=== PATIENT | female | born 1950 | race Caucasian/White ===

== ENCOUNTER 2017-11-03 10:17 | Emergency (ER) | payer MEDICARE, BC ==
[2017-11-03 10:27] VITALS: BP 153/83
[2017-11-03] MEDS ORDERED: MECLIZINE HCL 25 MG TABLET PO ONE (10:33)
[2017-11-03] MEDS ORDERED: ONDANSETRON 4 MG TAB.RAPDIS PO ONE (10:33)
--- NOTE | 2017-11-03 10:34 | ER Document Report ---
ED Dizziness/Weakness - General Chief Complaint: Dizziness Stated Complaint: DIZZINESS AND VOMITING Time Seen by Provider: 11/03/17 10:29 Mode of Arrival: Ambulatory Information source: Patient, [facility] Records Notes: This 67-year-old female patient comes emergency room complaining of severe dizziness and head spinning that started when she woke up this morning. She notices she turned her head to one way or the other the room was spinning, also she tried to stand and walk it was spinning. It is causing nausea and vomiting up some clear liquid at this time. There is no headache. She has never had vertigo before. She is presently on no medications. TRAVEL OUTSIDE OF THE [place] IN LAST 30 DAYS: No - Related Data Allergies/Adverse Reactions: No Known Allergies Allergy (Verified 11/03/17 10:20) Past Medical History - General Information source: Patient, Outside Facility Records - Social History Smoking Status: Never Smoker Cigarette use (# per day): No Chew tobacco use (# tins/day): No Smoking Education Provided: No Frequency of alcohol use: None Drug Abuse: None Occupation: Retired Lives with: Family Family History: Reviewed & Not Pertinent - Medical History Medical History: Other - The patient does not have any cardiovascular, pulmonary , renal problems and takes no regular medications. Musculoskeltal Medical History: Reports Hx Arthritis, Reports Other - Spinal stenosis, lumbar arthritis, takes Motrin on a as needed basis Psychiatric Medical History: Reports: None Past Surgical History: Reports: Hx Appendectomy, Hx Cholecystectomy, Hx Hysterectomy, Hx Tonsillectomy, Other - TM repaired or replaced many years ago Review of Systems - Review of Systems Constitutional: No symptoms reported EENT: See HPI Cardiovascular: No symptoms reported Respiratory: No symptoms reported Gastrointestinal: See HPI Genitourinary: No symptoms reported Female Genitourinary: Post menopausal Musculoskeletal: No symptoms reported Skin: No symptoms reported Hematologic/Lymphatic: No symptoms reported Neurological/Psychological: See HPI Physical Exam - Vital signs Vitals: Pulse Resp BP Pulse Ox 74 18 153/83 H 100 11/03/17 10:25 11/03/17 10:25 11/03/17 10:25 11/03/17 10:25 Interpretation: Hypertensive - General General appearance: Appears well, Alert In distress: Mild - HEENT Head: Normocephalic, Atraumatic Eyes: Other - Right lateral gaze nystagmus Extraocular movements intact: No - EOMI, right lateral gaze nystagmus Pupils: PERRL Ears: Normal Tympanic membrane: Normal Nasal: Normal Mucous membranes: Normal Neck: Normal. No: Carotid bruit - Respiratory Respiratory status: No respiratory distress Breath sounds: Normal - Cardiovascular Rhythm: Regular Murmur: No Friction rub: No - Abdominal Inspection: Normal Tenderness: Nontender - Back Back: Normal - Extremities General upper extremity: Normal inspection General lower extremity: Normal inspection - Neurological Neuro grossly intact: Yes Notes: Neurologically intact. Right lateral gaze nystagmus made worse by movement of the head. - Psychological Associated symptoms: Normal affect, Normal mood - Skin Skin Temperature: Warm Skin Moisture: Dry Skin Color: Normal Course - Re-evaluation Re-evalutation: 11/03/17 11:23 The patient was given 8 mg of Zofran sublingual for the nausea, followed by 50 mg of Antivert to see how her symptoms respond. 11/03/17 11:50 Patient reports her symptoms are much better now, almost completely gone. I had her do lateral gaze testing and there is no nystagmus. I had her look up and down and back and forth quite rapidly and that did not bring all nystagmus or dizziness. She stood up and walk with her 4 footed cane, she did seem a little unstable, but she states that is her baseline walking. She also has a walker at home. She does suffer from spinal stenosis. - Vital Signs Vital signs: Temp Pulse Resp BP Pulse Ox 74 18 153/83 H 100 11/03/17 10:25 11/03/17 10:25 11/03/17 10:25 11/03/17 10:25 Discharge - Discharge Clinical Impression: Vertigo Condition: Stable Disposition: HOME, SELF-CARE Additional Instructions: Vertigo: You have experienced an episode of vertigo -- a whirling dizziness which may be accompanied by nausea and vomiting or staggering. Vertigo is often caused by an irritation of the inner ear, in which case it is called labyrinthitis. It can also be a symptom of a degenerating inner ear, nerve damage, or brain injury. Your physician has evaluated you to determine whether any further testing is necessary. Vertigo is often treated with dramamine or meclizine. These medications are helpful, but stronger medication may be needed if you are vomiting. Rest in bed. You should not drive or operate machinery until completely better. It may take one to three weeks for recovery. If there are new symptoms, such as decreased hearing or vision, severe headache, weakness or faintness, or confusion, call the physician. //////////////////////////////////////////////////////////////////////////////// //////////////////////////////////////////////////////////////////////////////// / Take medication as prescribed for the dizziness and room spinning sensations. Take fall precautions until your symptoms have completely cleared up. Follow-up with your primary care provider if not improving over the next several days. RETURN TO THE EMERGENCY ROOM IF ANY NEW OR WORSENING SYMPTOMS. Prescriptions: Meclizine HCl [Antivert 25 mg Tablet] 25 mg PO TID PRN #25 tablet PRN Reason:
== END 2017-11-03 11:59 | disposition home or self-care (01) ==
LOC: ER 10:17
DX: R42 Dizziness and giddiness (principal); R11.10 Vomiting, unspecified
CPT/HCPCS: 99284; A9270 ×2; S0119

== ENCOUNTER → 2018-04-05 | Outpatient (CLI) | payer MEDICARE, BC ==
--- NOTE | 2018-04-05 10:34 | RADIOLOGY REPORT (SQ) ---
EXAM DESCRIPTION: L SPINE FLEX/EXT ONLY COMPLETED DATE/TIME: 04/05/2018 10:20 am REASON FOR STUDY: SPINAL STENOSIS M48.062 SPINAL STENOSIS, LUMBAR REGION WITH NEUROGENIC SHELLIE COMPARISON: 11/22/2015 NUMBER OF VIEWS: Three view. TECHNIQUE: Lateral views of the lumbar spine with flexion and extension. LIMITATIONS: None. FINDINGS: MINERALIZATION: Normal. SEGMENTATION: Normal. No transitional anatomy. ALIGNMENT: Approximately 17 mm anterolisthesis L5 on S1 unchanged from prior study. FLEXION/EXTENSION: No instability. VERTEBRAE: Maintained height. No fracture or worrisome bone lesion. DISCS: Stable degree of multilevel degenerative disc disease most severe at L5-S1. POSTERIOR ELEMENTS: Pedicles and facets are intact. Advanced facet arthropathy L5-S1. No definite p ars defect. HARDWARE: None in the spine. OTHER: No other significant finding. IMPRESSION: STABLE DEGENERATIVE CHANGE OF THE LUMBAR SPINE MOST SEVERE AT L5-S1 WITH THERE IS GRADE 1 ANTEROLISTHESIS. NO DEFINITE RADIOGRAPHIC EVIDENCE OF INSTABILITY. TECHNICAL DOCUMENTATION: JOB ID: [id number] [employer]- All Rights Reserved Reading location - IP/workstation name: [email or web address]
--- NOTE | 2018-04-05 16:01 | RADIOLOGY REPORT (SQ) ---
EXAM DESCRIPTION: MRI LUMBAR SPINE WITHOUT COMPLETED DATE/TIME: 04/05/2018 10:43 am REASON FOR STUDY: SPINAL STENOSIS M48.062 SPINAL STENOSIS, LUMBAR REGION WITH NEUROGENIC SHELLIE COMPARISON: 5th 01/24/2016 TECHNIQUE: Sagittal and Axial imaging includes T1, T2, STIR and gradient echo sequences. Coronal T2/ HASTE imaging. LIMITATIONS: None. FINDINGS: VISUALIZED UPPER ABDOMEN: Limited evaluation. No acute or suspicious findings suggested. SEGMENTATION: No transitional anatomy. The lowest well-developed disc space is labeled L5-S1. ALIGNMENT: Mild convex left scoliosis. Slight anterolisthesis of L3 relative to L4, L5 relative to S 1. VERTEBRAE: Intact. BONE MARROW: Normal. No marrow replacement or reactive changes. DISC SIGNAL: Desiccation multiple levels. POSTERIOR ELEMENTS: Intact. HARDWARE: None in the spine. CORD AND CONUS: Normal in size and signal intensity. Conus at the appropriate level. SOFT TISSUES: No aortic aneurysm seen. No bulky retroperitoneal adenopathy or mass. No paraspinal mas s or fluid. L1-L2: Mild spinal stenosis due to disc osteophyte complex. Mild -moderate neural foraminal narrowin g bilaterally. L2-L3: Mild spinal stenosis. Lateral recess stenosis. Facet arthropathy. Mild-moderate neural fora wendi narrowing bilaterally. L3-L4: Moderate spinal stenosis. Lateral recess stenosis. Facet arthropathy. Moderate neural aaliyah inal narrowing bilaterally. L4-L5: Mild spinal stenosis. Facet arthropathy. Moderate right neural foraminal narrowing. L5-S1: Facet arthropathy. Mild left and mild-moderate right neural foraminal narrowing. LOWER THORACIC: Incompletely imaged. No stenosis seen. SACRUM: Visualized upper sacrum intact. OTHER: No other significant findings. IMPRESSION: Spondylosis, facet arthropathy and malalignment. Spinal stenosis at multiple levels, mo re advanced at L3- 4. Slight progression since the prior. TECHNICAL DOCUMENTATION: JOB ID: [id number] [employer]- All Rights Reserved Reading location - IP/workstation name: [email or web address]
== END ==
LOC: RAD 09:10
PROVIDERS: ATTEND Neurological Surgery
DX: M48.062 Spinal stenosis, lumbar region with neurogenic claudication (principal)
CPT/HCPCS: 72120; 72148

== ENCOUNTER → 2019-01-20 | Outpatient (CLI) | payer MEDICARE, BC ==
--- NOTE | 2019-01-20 10:54 | RADIOLOGY REPORT (SQ) ---
EXAM DESCRIPTION: L SPINE FLEX/EXT ONLY COMPLETED DATE/TIME: 01/20/2019 10:09 am REASON FOR STUDY: PAIN IN RIGHT HIP, SPINAL INSTABILITIES M25.551 PAIN IN RIGHT HIP M53.2X7 SPINAL INSTABILITIES, LUMBOSACRAL REGION M48.062 SPINAL STENOSIS, LUMBAR REGION WITH NEUROGENIC SHELLIE COMPARISON: NUMBER OF VIEWS: Two view. TECHNIQUE: Lateral flexion or extension LIMITATIONS: None. FINDINGS: MINERALIZATION: Decreased SEGMENTATION: Normal. No transitional anatomy. ALIGNMENT: Stable grade 1-2 anterolisthesis of L5 on S1. FLEXION/EXTENSION: No evidence of instability with flexion or extension. VERTEBRAE: Maintained height. No fracture or worrisome bone lesion. DISCS: Multilevel degenerative disc disease throughout the lumbar spine greatest at L1-2 and L5-S1. POSTERIOR ELEMENTS: Lower lumbar facet arthropathy. HARDWARE: Surgical clips overlie upper abdomen. OTHER: No other significant finding. IMPRESSION: Stable grade 1-2 anterolisthesis of L5 on S1. No evidence of instability with flexion o r extension. Multilevel degenerative changes throughout the lumbar spine with lower lumbar facet arthropathy. TECHNICAL DOCUMENTATION: JOB ID: [id number] [employer]- All Rights Reserved Reading location - IP/workstation name: [email or web address]
--- NOTE | 2019-01-20 15:58 | RADIOLOGY REPORT (SQ) ---
EXAM DESCRIPTION: MRI LUMBAR SPINE WITHOUT COMPLETED DATE/TIME: 01/20/2019 9:47 am REASON FOR STUDY: PAIN IN RIGHT HIP, SPINAL INSTABILITIES M25.551 PAIN IN RIGHT HIP M53.2X7 SPINAL INSTABILITIES, LUMBOSACRAL REGION M48.062 SPINAL STENOSIS, LUMBAR REGION WITH NEUROGENIC SHELLIE COMPARISON: 04/05/2018. TECHNIQUE: Sagittal and Axial imaging includes T1, T2, STIR and gradient echo sequences. Coronal T2/ HASTE imaging. LIMITATIONS: None. FINDINGS: VISUALIZED UPPER ABDOMEN: Limited evaluation. No acute or suspicious findings suggested. SEGMENTATION: No transitional anatomy. The lowest well-developed disc space is labeled L5-S1. ALIGNMENT: Grade 1 anterolisthesis of L5 on S1. Mild levoconvex curvature of the lumbar spine. . VERTEBRAE: Intact. BONE MARROW: Normal. No marrow replacement or reactive changes. DISC SIGNAL: Multilevel degenerative disc disease with disc desiccation and multilevel disc bulges. POSTERIOR ELEMENTS: Generally intact. No pars defect evident. HARDWARE: None in the spine. CORD AND CONUS: Normal in size and signal intensity. Conus medullaris terminates at L1-2. SOFT TISSUES: No aortic aneurysm seen. No bulky retroperitoneal adenopathy or mass. No paraspinal mas s or fluid. L1-L2: Broad circumferential disc bulge resulting in moderate spinal canal stenosis. There is modera te bilateral neural foraminal narrowing secondary to disc bulge and minimal facet hypertrophy. L2-L3: Circumferential broad-based disc resulting in moderate to severe spinal canal stenosis. There is moderate bilateral neural foraminal narrowing secondary to discs disease predominantly. L3-L4: Circumferential disc bulge with resultant severe spinal canal stenosis. There is moderate alyssa ateral neural foraminal narrowing secondary to disc disease and facet hypertrophy, left greater than right. L4-L5: Broad circumferential disc bulge with resultant moderate spinal canal stenosis. There is mode rate bilateral neural foraminal narrowing secondary to facet and disc disease. L5-S1: Grade 1 anterolisthesis of L5 on S1. There is a broad circumferential disc bulge with moderat e canal stenosis. There is mild left hand oque-gi-touaonqm right neural foraminal narrowing secondar y to disc disease. LOWER THORACIC: Incompletely imaged. No stenosis seen. SACRUM: Visualized upper sacrum intact. OTHER: No other significant findings. IMPRESSION: Multilevel degenerative disc disease greatest at L3-4 with a circumferential disc bulge and facet disease resulting in severe spinal canal stenosis. Findings mildly progressed compared to prior exam. Nynh-gn-pjbfohqu additional spinal canal stenosis and bilateral neural foraminal narrowing as detaile d above TECHNICAL DOCUMENTATION: JOB ID: [id number] [employer]- All Rights Reserved Reading location - IP/workstation name: [email or web address]
== END ==
LOC: RAD 09:08
PROVIDERS: ATTEND Physician Assistant
DX: M25.551 Pain in right hip (principal); M53.2X7 Spinal instabilities, lumbosacral region; M48.062 Spinal stenosis, lumbar region with neurogenic claudication; M51.36 Other intervertebral disc degeneration, lumbar region
CPT/HCPCS: 72120; 72148

== ENCOUNTER → 2019-02-14 | Outpatient (CLI) | payer MEDICARE, BC ==
--- NOTE | 2019-02-15 08:48 | RADIOLOGY REPORT (SQ) ---
EXAM DESCRIPTION: MRIRLJ WO COMPLETED DATE/TIME: 02/14/2019 11:06 am REASON FOR STUDY: RIGHT HIP PAIN COMPARISON: None. TECHNIQUE: Noncontrast multiplanar MR imaging. Sequences include wide field of view pelvis and focu sed hip of interest. Fat sensitive, water sensitive, and cartilage sensitive sequences. Specific hip of interest: Right LIMITATIONS: None. FINDINGS: MARROW SIGNAL: Normal, no evidence of replacement, occult fracture or suspicious bone lesi on in the visualized lumbar spine, pelvis and proximal femurs. Mild lumbar scoliosis. SPECIFIC HIP OF INTEREST: Joint space narrowing with generalized thinning of hyaline cartilage. Dmitry ma on both sides of the joint with subchondral cysts in the anterior acetabulum. Prominent femoral a nd acetabular osteophytes. No evidence of AVN or fracture. Mild effusion. No regional muscle tear or significant bursitis. OPPOSITE HIP: Similar but less pronounced degenerative changes. No AVN or fracture. REMAINDER OF THE OSSEOUS PELVIS: SI joints normal. Symphasis pubis intact. No Avulsion injury evide nt. INTRA- AND EXTRAPELVIC SOFT TISSUES: No intrapelvic mass or free fluid. Bladder normal. No extrapelv ic mass. No inguinal hernia or adenopathy. IMPRESSION: 1. Degenerative right hip arthropathy as above. No fracture or AVN. No worrisome bone lesions. Reading location - IP/workstation name: [email or web address]
== END ==
LOC: RAD 10:11
PROVIDERS: ATTEND Physician Assistant
DX: M25.551 Pain in right hip (principal); M53.2X7 Spinal instabilities, lumbosacral region; M48.062 Spinal stenosis, lumbar region with neurogenic claudication

== ENCOUNTER 2019-04-21 09:27 | Day surgery (SDC) | payer MEDICARE, BC ==
[2019-04-14 11:01] LABS: APPEARANCE,URINE SLIGHTLY-CLOUDY; BILIRUBIN,URINE NEGATIVE (NEGATIVE); COLOR,URINE YELLOW; GLUCOSE, URINE NEGATIVE (NEGATIVE); KETONES,URINE NEGATIVE (NEGATIVE); LEUKOCYTE ESTERASE,URINE MODERATE (NEGATIVE); NITRITE,URINE NEGATIVE (NEGATIVE); PROTEIN,URINE NEGATIVE (NEGATIVE); URINE SPECIFIC GRAVITY 1.017; UROBILINOGEN,URINE NEGATIVE mg/dL (<2.0)
[2019-04-14 11:06] LABS: ABSOLUTE EOSINOPHILS # (AUTO) 0.2 10^3/uL (0.0-0.6); ABSOLUTE LYMPHOCYTES (AUTO) 1.2 10^3/uL (0.5-4.7); ABSOLUTE MONOCYTES (AUTO) 0.4 10^3/uL (0.1-1.4); ABSOLUTE NEUT (AUTO) 3.4 10^3/uL (1.7-8.2); BASOPHILS % (AUTO) 0.6 % (0-2); HEMATOCRIT 36.7 % (36.0-47.0); HEMOGLOBIN 12.8 g/dL (12.0-15.5); LYMPHOCYTES % (AUTO) 22.6 % (13-45); MEAN CORPUSCULAR HEMOGLOBIN 29.3 pg (27.0-33.4); MEAN CORPUSCULAR HGB CONC 34.9 g/dL (32.0-36.0); MEAN CORPUSCULAR VOLUME 84 fl (80-97); MONOCYTES % (AUTO) 7.5 % (3-13); PLATELET COUNT 214 10^3/uL (150-450); RED BLOOD COUNT 4.37 10^6/uL (3.72-5.28); RED CELL DISTRIBUTION WIDTH 13.5 % (11.5-14.0); SEGMENTED NEUTROPHILS % (AUTO) 66.3 % (42-78); TOTAL CELLS COUNTED % (AUTO) 100 %; WHITE BLOOD COUNT 5.1 10^3/uL (4.0-10.5)
[2019-04-14 11:08] LABS: INTERNATIONAL RATION (INR) 1.03; PROTHROMBIN TIME 14.1 SEC (11.4-15.4)
[2019-04-14 11:09] LABS: PARTIAL THROMBOPLASTIN TIME 30.8 SEC (23.5-35.8)
[2019-04-14 11:30] LABS: ANION GAP 11 (5-19); BLOOD UREA NITROGEN 7 mg/dL (7-20); CALCIUM 9.5 mg/dL (8.4-10.2); CARBON DIOXIDE 26 mmol/L (22-30); CHLORIDE 106 mmol/L (98-107); GLUCOSE 94 mg/dL (75-110); POTASSIUM 3.8 mmol/L (3.6-5.0); SODIUM 143.2 mmol/L (137-145)
[~2019-04-21 09:27] MED LIST: CEFAZOLIN 1 GM/D5W RTU 1 GM/50 ML RTUPB IV ONE; CEFAZOLIN 1 GM/D5W RTU 1 GM/50 ML RTUPB IV PRN; LIDOCAINE 0.5% INJ-PF (5 MG/ML) 50 ML SDV SUBCUT PRN; RINGERS SOLUTION,LACTATED 1,000 ML IV PRN
[2019-04-21] MEDS: MORPHINE SULFATE 10 MG/ML INJ ONE ×2 (10:09→12:34)
[2019-04-21] MEDS ORDERED: KETAMINE HCL INJ 500 MG/10 ML VIAL ONE (10:42)
[2019-04-21] MEDS ORDERED: FENTANYL CITRATE INJ/PF 100 MCG/2 ML AMPUL ONE ×2 (10:42→13:11)
[2019-04-21] MEDS ORDERED: PROPOFOL INJ 200 MG/20 ML VIAL IV ONE (10:42)
[2019-04-21] MEDS ORDERED: TRIAMCINOLONE ACETONIDE INJ 40 MG/1 ML VIAL ONE (10:44)
[2019-04-21] MEDS ORDERED: LIDOCAINE 1% INJ-PF (10 MG/ML) 30 ML SDV ONE (10:44)
--- NOTE | 2019-04-21 10:51 | EKG REPORT ---
SEVERITY:- BORDERLINE ECG - SINUS ARRHYTHMIA, RATE 64-89 BORDERLINE LEFT AXIS DEVIATION BORDERLINE R WAVE PROGRESSION, ANTERIOR LEADS : Confirmed by: María Nava MD 21-Apr-2019 10:50:33
[2019-04-21] MEDS ORDERED: MEPERIDINE HCL/PF INJ 25 MG/1 ML DISP.SYRIN IV PRN (11:49)
[2019-04-21] MEDS ORDERED: DIPHENHYDRAMINE HCL 50 MG/ML VIAL IV PRN (11:49)
[2019-04-21] MEDS ORDERED: FENTANYL CITRATE INJ/PF 100 MCG/2 ML AMPUL IV PRN ×3 (11:49)
--- NOTE | 2019-04-21 12:29 | OPERATIVE REPORT E ---
Operative Report NAME: BRAD CHURCHILL : 1950 AGE: 68Y DATE OF SURGERY: 04/21/2019 ROOM: PREOPERATIVE DIAGNOSIS: Lumbar spinal stenosis with neurogenic claudication. POSTOPERATIVE DIAGNOSIS: Lumbar spinal stenosis with neurogenic claudication. PROCEDURE PERFORMED: Minimally invasive lumbar decompression at L3-L4. PRIMARY SURGEON: MONIKA GILLETTE M.D. ANESTHESIA: MAC with sedation. PREOPERATIVE ANTIBIOTICS: One gram Ancef given prior to incision. SPECIMENS REMOVED: Small pieces of ligamentum flavum were removed and discarded during procedure. OPERATIVE FINDINGS: Excellent improvement in epidurography at L3-L4. INDICATIONS: The patient is a 68-year-old female with severe lumbar spinal stenosis and resultant neurogenic claudication. She has had very short-lived results from epidural steroid injections and is determined to be a candidate for minimally invasive lumbar decompression. All risks and benefits were discussed with the patient, including, but not limited to, bleeding, bruising, infection, injury to nerves, arteries, veins, postdural puncture headache, loss of bowel or bladder function, paralysis, and potentially even . The patient was aware of all of these risks and she agreed to proceed. OPERATIVE DETAIL: The patient was accompanied by Anesthesia staff to the operating room suite where she was placed in prone position. All the pressure points were protected and padded. Standard ASA lines and monitors were applied. The patient was prepped and draped in a sterile fashion using chlorhexidine gluconate solution and an Ioban drape. C-arm was also draped sterilely into the field. A time-out procedure was performed as per [facility] standards. The L3-L4 interspace was marked using AP fluoroscopic guidance. Subsequently the skin overlying the planned epidural insertion site was anesthetized with 1% lidocaine using a 25-gauge needle. A 17-gauge Tuohy was advanced under intermittent AP and oblique fluoroscopic guidance into the interspace at L3-L4 and access to the interspace was gained through loss of resistance to normal saline. Loss of resistance was recorded at 7 cm. At this point aspiration was negative for heme or fluid. Omnipaque 180 contrast was injected at a volume of 2 mL to provide posterior epidurogram. At this point attention was turned to the skin overlying the pedicle of L5 on the left. The skin was anesthetized with 1% lidocaine, and deeper tissues were infiltrated similarly using a 3.5 inch, 25 gauge needle. An incision was made using a 15 blade scalpel and subsequently the trocar provided by the [employer] kit was advanced under intermittent and oblique fluoroscopic guidance to the L3-4 interspace. When the trocar was just posterior to the lamina, confirmed in the oblique angulation with appropriate medialization in AP fluoroscopic angulation, the trocar was stabilized using the provided stabilizing device. The stylette was removed and a depth gauge was placed over the trocar at 15 mm. At this point a rongeur was advanced through the trocar and utilized to scrape the lamina and ligamentum. Once sufficient tissue was removed a tissue sculptor was then utilized through the trocar. Following this improved spread in the posterior epidural space was noted of contrast. The trocar was then removed, and attention was turned to the opposite side where the procedure was performed in the exact same fashion at the L3-4 interspace. Also, 80 mg of Kenalog diluted in saline for a total of 3 mL was injected. Once this was completed the trocars were removed as well as the epidural needle. The skin was cleansed and Steri-Strips were used for closure. The patient was accompanied by to the postanesthesia recovery room in stable condition. She will be seen in followup in 24 hours for wound check. DICTATING PHYSICIAN: MONIKA GILLETTE M.D. [id number] PHY#: [id number] ID: [id number] JOB#: [id number] ACCT: [id number] cc:MONIKA GILLETTE M.D. >
[2019-04-21] MEDS ORDERED: MORPHINE SULFATE 10 MG/ML INJ ONE (12:33)
[2019-04-21] MEDS ORDERED: ONDANSETRON HCL INJ/PF 4 MG/2 ML SDV IV PRN (12:40)
[2019-04-21] MEDS ORDERED: OXYCODONE HCL IR 5 MG TABLET PO PRN (12:40)
[2019-04-21] MEDS ORDERED: OXYCODONE HCL IR 5 MG TABLET ONE (14:00)
[2019-04-21] MEDS ORDERED: KETOROLAC TROMETHAMINE 60 MG/2 ML SDV ONE (14:08)
[2019-04-21] MEDS ORDERED: ONDANSETRON HCL INJ/PF 4 MG/2 ML SDV ONE (14:08)
--- NOTE | 2019-04-21 14:17 | RADIOLOGY REPORT (SQ) ---
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 FLUOROSCOPY TIME: 5.7 minute 9 images saved to PACS. TECHNIQUE: Intra-operative images acquired during surgical procedure to evaluate progress. NUMBER OF IMAGES: 9 LIMITATIONS: None. FINDINGS: Fluoroscopic images of the lower lumbar spine with contrast administration through spinal needle. IMPRESSION: IMAGE(S) OBTAINED DURING PROCEDURE. COMMENT: Quality ID [id number]: Final reports for procedures using fluoroscopy that document radiation exp osure indices, or exposure time and number of fluorographic images (if radiation exposure indices are not available) Please consult full operative report of the attending physician for description of the procedure. TECHNICAL DOCUMENTATION: JOB ID: [id number] [employer]- All Rights Reserved Reading location - IP/workstation name: [email or web address]
--- NOTE | 2019-04-21 14:17 | RADIOLOGY REPORT (SQ) ---
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 FLUOROSCOPY TIME: 5.7 minute 9 images saved to PACS. TECHNIQUE: Intra-operative images acquired during surgical procedure to evaluate progress. NUMBER OF IMAGES: 9 LIMITATIONS: None. FINDINGS: Fluoroscopic images of the lower lumbar spine with contrast administration through spinal needle. IMPRESSION: IMAGE(S) OBTAINED DURING PROCEDURE. COMMENT: Quality ID [id number]: Final reports for procedures using fluoroscopy that document radiation exp osure indices, or exposure time and number of fluorographic images (if radiation exposure indices are not available) Please consult full operative report of the attending physician for description of the procedure. TECHNICAL DOCUMENTATION: JOB ID: [id number] [employer]- All Rights Reserved Reading location - IP/workstation name: [email or web address]
[2019-04-21 14:56] VITALS: BP 149/85
== END 2019-04-21 14:55 | disposition home or self-care (01) ==
LOC: OROUT 09:27
PROVIDERS: ATTEND Pain Medicine Interventional Pain Medicine
DX: M48.062 Spinal stenosis, lumbar region with neurogenic claudication (principal); Z00.6 Encounter for examination for normal comparison and control in clinical research program; M54.16 Radiculopathy, lumbar region; M51.36 Other intervertebral disc degeneration, lumbar region; M54.5 Low back pain; M47.896 Other spondylosis, lumbar region; M25.551 Pain in right hip; M16.11 Unilateral primary osteoarthritis, right hip
CPT/HCPCS: 36415; 85025; 85610; 85730; 80048; 81001; 72100; 93005; 93010; 00630; 0275T; C1889; Q9966; J0690; J1885; J3010; J3490 ×2; J2270; J2405; J3301; J2704; A9270; 630

== ENCOUNTER → 2020-09-02 | Outpatient (CLI) | payer MEDICARE, BC ==
--- NOTE | 2020-09-02 14:14 | RADIOLOGY REPORT (SQ) ---
EXAM DESCRIPTION: MRI LUMBAR SPINE WITHOUT IMAGES COMPLETED DATE/TIME: 09/02/2020 1:57 pm REASON FOR STUDY: M47.896 OTHER SPONDYLOSIS, LUMBAR REGION M47.896 OTHER SPONDYLOSIS, LUMBAR REGION COMPARISON: MRI dated 01/20/2019, CT lumbar spine dated 10/19/2019 TECHNIQUE: Sagittal and Axial imaging includes T1, T2, STIR and gradient echo sequences. Coronal T2/ HASTE imaging. LIMITATIONS: None. FINDINGS: VISUALIZED UPPER ABDOMEN: Limited evaluation. No acute or suspicious findings suggested. SEGMENTATION: No transitional anatomy. The lowest well-developed disc space is labeled L5-S1. ALIGNMENT: Scoliosis with concavity toward the right. Stable grade 1 anterolisthesis of L4 on L5. VERTEBRAE: Intact. BONE MARROW: Multilevel endplate marrow edema with decreased signal intensity on T1 weighted sequence s increased signal intensity on T2 and STIR sequences. DISC SIGNAL: Desiccation throughout the lumbar spine. Multilevel disc space narrowing. POSTERIOR ELEMENTS: Generally intact. No pars defect evident. HARDWARE: None in the spine. CORD AND CONUS: Normal in size and signal intensity. Conus at the appropriate level. SOFT TISSUES: No aortic aneurysm seen. No bulky retroperitoneal adenopathy or mass. No paraspinal mas s or fluid. L1-L2: Broad-based disc/ osteophyte complex. Bilateral facet arthropathy. This combination results in moderate central stenosis. There is bilateral foraminal stenosis. When compared to prior study t here has been little change. L2-L3: Broad-based disc/ osteophyte complex and bilateral facet arthropathy. This combination result s in moderate to severe central stenosis. There is asymmetric narrowing of the right neural foramina . L3-L4: Broad-based annular disc bulging with bilateral facet arthropathy. There is severe central st enosis and bilateral foraminal stenosis. L4-L5: Broad-based annular disc bulging with facet arthropathy. This results in moderate to severe c entral stenosis and bilateral foraminal stenosis. L5-S1: Broad-based annular disc bulging with anterolisthesis of L5 on S1. This results in moderate c entral canal narrowing and bilateral foraminal stenosis. LOWER THORACIC: Incompletely imaged. No stenosis seen. SACRUM: Visualized upper sacrum intact. OTHER: No other significant findings. IMPRESSION: Multilevel spondylosis which has progressed slightly when compared to 2019. Moderate central stenosis at L1-L2 with bilateral foraminal stenosis. Moderate to severe central stenosis at L2-L3 with asymmetric narrowing of the right neural foramina. Severe central stenosis at L3-L4 with bilateral foraminal stenosis. Moderate to severe central stenosis at L4-L5 with bilateral foraminal stenosis. Moderate central stenosis at L5-S1 with bilateral foraminal stenosis. TECHNICAL DOCUMENTATION: JOB ID: [id number] 2010 [email or web address]- All Rights Reserved Reading location - IP/workstation name: [email or web address]
== END ==
LOC: RAD 13:05
PROVIDERS: ATTEND Pain Medicine Interventional Pain Medicine
DX: M47.896 Other spondylosis, lumbar region (principal)
CPT/HCPCS: 72148